=== PATIENT | female | born 1990 | race Caucasian/White ===

== ENCOUNTER → 2016-06-28 | Outpatient (CLI) | payer BC, OTHER ==
--- NOTE | 2016-06-29 08:41 | DI ---
PELVIC ULTRASOUND, 06/28/2016 3:58 PM Clinical History: IUD checkup/localization. Previous Exam: None at this facility. Technique: Transvaginal scans are performed. The uterus measures 35 x 50 x 65 mm. The uterus has a normal appearance. The IUD is located in the ce ntral uterine cavity in the appropriate position. The ovaries are not visualized. There are no fluid collections or masses. Reading: The uterus is normal. The IUD lies in the central uterine cavity in the appropriate position.
== END ==
LOC: US 15:50
PROVIDERS: ATTEND Nurse Practitioner Family
DX: Z30.431 Encounter for routine checking of intrauterine contraceptive device (principal)
CPT/HCPCS: 76830

== ENCOUNTER → 2016-07-26 | Outpatient (CLI) | payer BC, OTHER ==
[2016-07-26 14:00] LABS: FREE T4 (FREE THYROXINE) 0.62 ng/dL (0.93-1.71)
[2016-07-28 04:22] LABS: IRON 81 UG/DL (37-170)
[2016-07-28 04:38] LABS: PERCENT IRON SATURATION 26 % (14-50)
== END ==
LOC: LAB 12:42
PROVIDERS: ATTEND Family Medicine
DX: E61.1 Iron deficiency (principal); E03.9 Hypothyroidism, unspecified
CPT/HCPCS: 36415; 82728; 83540; 83550; 84439; 84443

== ENCOUNTER → 2016-09-22 | Outpatient (CLI) | payer BC, OTHER ==
[2016-09-22 13:26] LABS: FREE T4 (FREE THYROXINE) 0.78 ng/dL (0.93-1.71)
== END ==
LOC: LAB 11:55
PROVIDERS: ATTEND Family Medicine
DX: E03.9 Hypothyroidism, unspecified (principal)
CPT/HCPCS: 36415; 84439; 84443

== ENCOUNTER → 2016-10-04 | Outpatient (CLI) | payer BC, OTHER ==
[2016-10-04 09:09] LABS: FREE T4 (FREE THYROXINE) 0.86 ng/dL (0.93-1.71)
== END ==
LOC: LAB 08:03
PROVIDERS: ATTEND Family Medicine
DX: E03.9 Hypothyroidism, unspecified (principal)
CPT/HCPCS: 36415; 84439; 84443

== ENCOUNTER → 2016-11-20 | Outpatient (CLI) | payer BC, OTHER ==
[2016-11-20 13:45] LABS: FREE T4 (FREE THYROXINE) 0.74 ng/dL (0.93-1.71)
--- NOTE | 2016-11-21 11:00 | DI ---
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 Previous Exam: None at this facility. Findings: Multiple helically acquired CT images are obtained through the temporal bones with sagittal and coron al reconstructions, and demonstrate normal mastoid air cells. Visualized portions of the upper cervic al spine are unremarkable. Visualized temporomandibular joints are unremarkable. Paranasal sinuses are unremarkable except for a small mucus retention cyst within the dependent porti on of the right maxillary sinus. The ostiomeatal complexes and sphenoethmoidal recesses are normal. Intraorbital structures are unremarkable. There is rightward deviation of the bony nasal septum. The right Mayte ridge is completely normal and the superior semicircular canal does not extend more superior to the Mayte ridge. The inner ossicles are unremarkable. The scutum are sharp and delicate bilaterally. The tympanic membranes are normal. The cochlea appears grossly normal. The oval window and internal a uditory canals are unremarkable. Within the left Mayte ridge, there is a very small area where there appears to be dehiscence overlyi ng the superior semicircular canal along the posterior Mayte ridge. This only involves a section of the superior central canal which measures approximately 1 mm, and the inferior portion of the canal i s still embedded within the bone. Impression: 1. No evidence of superior semicircular canal dehiscence on the right. 2. On the left, there is a very short segment of the superior semicircular canal near the left Mayte apex posteriorly which extends above the cortical surface of the Mayte ridge. This could represent superior canal dehiscence. This should be combined with clinical symptoms to formulate the diagnosis.
== END ==
LOC: CT 12:42
PROVIDERS: ATTEND Otolaryngology
DX: H68.133 Extrinsic cartilagenous obstruction of Eustachian tube, bilateral (principal); R94.6 Abnormal results of thyroid function studies
CPT/HCPCS: 36415; 70480; 84439; 84443

== ENCOUNTER → 2016-12-06 | Outpatient (CLI) | payer BC, OTHER ==
[2016-12-06 08:44] LABS: FREE T4 (FREE THYROXINE) 0.77 ng/dL (0.93-1.71)
== END ==
LOC: LAB 07:42
PROVIDERS: ATTEND Family Medicine
DX: E03.9 Hypothyroidism, unspecified (principal)
CPT/HCPCS: 36415; 84432; 84439; 84443; 84481; 86376; 86800

== ENCOUNTER → 2017-01-31 | Outpatient (CLI) | payer BC, OTHER | LOC: LAB 11:18 | PROVIDERS: ATTEND Pediatrics Pediatric Endocrinology | DX: E07.9 Disorder of thyroid, unspecified (principal); E63.9 Nutritional deficiency, unspecified | CPT/HCPCS: 36415; 82306; 84439; 84443; 84445; 84481 ==